=== PATIENT | male | born 1950 | race African-American/Black ===

== ENCOUNTER 2016-04-05 01:41 | Inpatient (IN) | payer OTHER ==
[~2016-04-05] VITALS: Ht 177.8 cm; Wt 99.8 kg
[2016-04-05] MEDS ORDERED: MS CONTIN30 M1 PO (15:17)
[2016-04-05] MEDS ORDERED: COLACE100 M1 PO (15:17)
[2016-04-05] MEDS ORDERED: ASPIRIN EC325 M2 PO (15:17)
[2016-04-05] MEDS ORDERED: MIRALAX17 G1 PO (15:17)
[2016-04-05] MEDS ORDERED: PRILOSEC OTC20 M1 PO (15:17)
[2016-04-05] MEDS ORDERED: DILAUDID4 M1 PO (15:17)
--- NOTE | 2016-04-05 15:22 | Patient Discharge Instructions ---
Discharge Instructions General Discharge Information You were seen/treated for: Left knee pain You had these procedures: Left total knee replacement Watch for these problems: Increasing pain, redness, warmth, swelling. Drainage of any type from incision. Inability to bear weight on left leg. Fever greater than 101.5. Do not soak the wound: Yes No bath, but you may shower: Yes Other wound care: Keep wound clean and dry Special Instructions: Incision: Dry dressing. May shower. No baths. No ointments of any kind. Ice as needed. Bowel regimen: Colace and or MiraLAX Weight-bearing as tolerated Follow-up with Dr. Maria in 6 weeks. Call office for fevers greater than 101.5, excessive drainage or inability to bear weight on operative extremity. Visiting nurse will change dressing. Diet Continue normal diet: Yes Recommended Diet: Regular Additional DIET Information: Advance as tolerated Activity Full Activity/No Limits: No Activity Self Limited: Yes Pounds, do NOT lift more than: 10 Additional ACTIVITY Info: Weight-bear as tolerated on left leg Acute Coronary Syndrome Inclusion Criteria At DC or during hospital stay patient has or had the following: ACS DIAGNOSIS No Discharge Core Measures Meds if any: Prescribed or Continued at Discharge Meds if any: NOT Prescribed or Continued at Discharge Congestive Heart Failure Inclusion Criteria At DC or during hospital stay patient has or had the following: CHF DIAGNOSIS No Discharge Core Measures Meds if any: Prescribed or Continued at Discharge Meds if any: NOT Prescribed or Continued at Discharge Cerebrovascular accident Inclusion Criteria At DC or during hospital stay patient has or had the following: CVA/TIA Diagnosis No Discharge Core Measures Meds if any: Prescribed or Continued at Discharge Meds if any: NOT Prescribed or Continued at Discharge Venous thromboembolism Inclusion Criteria VTE Diagnosis No VTE Type NONE VTE Confirmed by (Test) NONE Discharge Core Measures - Per Current guidelines, there needs to be overlap - treatment for the first 5 days of Warfarin therapy. - If discharged on Warfarin prior to 5 days of - overlap therapy, the patient will need to be - assessed for post discharge needs including - *Post discharge parental anticoagulation - *Warfarin and/or parental anticoagulation education - *Follow up date to check INR post discharge At least 5 days overlap therapy as Inpatient No Meds if any: Prescribed or Continued at Discharge Note: Overlap Therapy is Warfarin and Anticoagulant Meds if any: NOT Prescribed or Continued at Discharge
--- NOTE | 2016-04-05 15:26 | Admission Core Measures ---
Admission Meds I reviewed the following Meds: Current Medications Sig/Emily Start time Last Medication Dose Stop Time Status Admin Acetaminophen 975 MG ONCE 04/05 0000 NR (Tylenol) 04/05 2358 Cefazolin Sodium 2 GM ONCE 04/05 0000 NR (Kefzol) 04/05 2358 Oxycodone HCl 10 MG ONCE 04/05 0000 NR (Roxicodone) 04/05 2358 Ropivacaine 500 ML ONCE ONE 04/05 1100 AC (NAROPIN) 04/07 0439 ON-Q Ball 1 BAG Acute Coronary Syndrome Inclusion Criteria ACS Diagnosis No Inpatient Core Measures LDL Reminder: If No, please order W/I first 24hr of stay Congestive Heart Failure Inclusion Criteria CHF Diagnosis No Cerebrovascular accident Inclusion Criteria CVA/TIA Diagnosis No Inpatient Core Measures Bedside Swallow Eval Reminder: If BSE failed, place ST order Antithrombotic Reminder: Order Antithrombotic Medication by end of day 2 Antithrombotic Reminder: Document Reason Antithrombotic Not ordered by end of day 2 AFIB/Flutter Reminder: If Present, add to problem list AFIB/Flutter Reminder: Order Anticoag Medication for pts with AFIB/Flutter Atherosclerosis Reminder: If Present, add to problem list LDL Reminder: If No, please order W/I first 24hr of stay PT Order Reminder: If No, please order Venous thromboembolism Inpatient Core Measures VTE Risk Factors: Age > 40, Surgery VTE Prophylaxis Ordered Inpt Mech & Pharm No Mech VTE prophylaxis d/t No contraindications No VTE Pharm Prophylaxis d/t No contraindications Inclusion Criteria - Per Current guidelines, there needs to be overlap - treatment for the first 5 days of Warfarin therapy. - Parenteral Anticoagulation (IV or SC) needs to be - given along with Warfarin therapy. VTE Diagnosis No VTE Type NONE VTE Confirmed by (Test) NONE Problem List As ranked by this Provider includes Assessment & Plan 1. Unilateral primary osteoarthritis, left knee HOME MEDS Home Med List Aspirin (Ecotrin*) 325 MG TABLET.DR 1 TAB PO BID ANTICOAGULATION Docusate Sodium (Colace) 100 MG CAPSULE 1 CAP PO BID CONSTIPATION Hydromorphone HCl (Dilaudid) 4 MG TABLET 1-2 TAB PO Q4-6 PRN PAIN Morphine Sulfate (Ms Contin) 30 MG TABLET.ER 1 TAB PO BID PAIN Omeprazole Magnesium (Prilosec Otc) 20 MG TABLET.DR 1 TAB PO DAILY GI PROTECTION Polyethylene Glycol 3350 (Miralax) 17 GRAM POWD.PACK 1 PAC PO DAILY CONSTIPATION
--- NOTE | 2016-04-05 15:28 | Surgical Discharge Summary ---
Visit Information Visit Dates Admission Date: 04/05/16 Discharge Date: 04/08/16 History of Present Illness Chief Complaint: Left knee pain Surgical History Pertinent Surgical History: non-contributory Review of Systems: See H&P Hospital Course Course Attending Physician: LEANDRA ALVAREZ MD Primary Care Physician: CRYSTAL CHIU MD Hospital Course: Patient was admitted to the hospital on 04/05/2016 for an elective left total knee replacement. He tolerated the procedure well. He was transferred to a general surgical floor. His diet was advanced and tolerated. On post operative day 2, he was found to be hypertensive and tachycardic, asymptomatic for both. He was evaluted by the medicine service and a low dose of norvasc was started to which he responded well. A CTA of his chest was obtained to rule out pulmonary embolism. The scan did not show evidene of PE in lower lobes. He also had a venous doppler study on POD#3 to rule out dvts, which was negative. His pain has been well controlled. He was evaluated and treated by physical therapy. He was deemed appropriate for discharge. Allergies: Coded Allergies: No Known Allergies (03/30/16) Disposition Summary Disposition Principal Diagnosis: Left knee unilateral primary osteoarthritis Additional Diagnosis: None Discharge Disposition: home health services Discharge Instructions General Discharge Information Code Status: Full Code Patient's Diet: Regular, advance as tolerated Patient's Activity: Weight-bear as tolerated left leg Follow-Up Instructions/Appts: Incision: Dry dressing. May shower. No baths. No ointments of any kind. Ice as needed. Bowel regimen: Colace and or MiraLAX Weight-bearing as tolerated Follow-up with Dr. Alvarez in 6 weeks. Call office for fevers greater than 101.5, excessive drainage or inability to bear weight on operative extremity. Visiting nurse will change dressing. Medications at Discharge Discharge Medications: Start taking the following new medications: Aspirin (Ecotrin*) 325 MG TABLET.DR 1 Tablet ORAL TWICE DAILY Qty = 60 No Refills Omeprazole Magnesium (Prilosec Otc) 20 MG TABLET.DR 1 Tablet ORAL DAILY Qty = 30 No Refills Docusate Sodium (Colace) 100 MG CAPSULE 1 Capsule ORAL TWICE DAILY Qty = 14 No Refills Instructions: DISCONTINUE USE IF YOU DEVELOP LOOSE STOOL OR DIARRHEA Polyethylene Glycol 3350 (Miralax) 17 GRAM POWD.PACK 1 Packet ORAL DAILY Qty = 7 No Refills Instructions: dissolve in water, DISCONTINUE USE IF YOU DEVELOP LOOSE STOOL OR DIARRHEA Hydromorphone HCl (Dilaudid) 2 MG TABLET 1-2 Tablet ORAL EVERY 4-6 HOURS as needed for PAIN Qty = 36 No Refills Morphine Sulfate (Ms Contin) 15 MG TABLET.ER 1 Tablet ORAL THREE TIMES DAILY Qty = 9 No Refills Amlodipine Besylate (Norvasc) 5 MG TABLET 1 Tablet ORAL DAILY Qty = 30 No Refills
--- NOTE | 2016-04-05 16:09 | Operative Report ---
Operative/Inv Procedure Report Surgery Date: 04/05/16 Name of Procedure: Left total knee replacement Pre-Operative Diagnosis: Primary left knee DJD Post-Operative Diagnosis: Same Estimated Blood Loss: 50ml to 100ml Surgeon/Director Of Food And Nutrition: ANTONIO KING,LEANDRA Daly Anesthesia: block Operative/Procedure Note Note: Description of Procedure: The patient was taken to the operating room and positively identified. After induction of spinal anesthesia and administration of appropriate pre-operative antibiotics, the patient was positioned supine on the operating room table and all bony prominences were well padded. A well-padded pneumatic tourniquet was placed on the left upper thigh. After performing a surgical timeout, the left lower extremity was prepped and draped in the usual sterile fashion. After exsanguination with Esmarch the tourniquet was inflated to 250mm of mercury. A standard medial parapatellar approach was made to the knee. This was carried down through skin and subcutaneous tissue to the level of the fascia. Meticulous hemostasis was maintained with Bovie electrocautery. The extensor mechanism and patellar retinaculum were opened sharply and the patella was everted. The infrapatellar fat was resected in order to improve exposure. Osteophytes were trimmed from the patella and femoral condyles and the patella was re-everted and tucked laterally. A medial release was performed and the cruciate ligaments were resected. The tibia was then subluxed anteriorly. Utilizing the appropriate extra-medullary guide, the proximal tibia was trimmed perpendicular to the long axis of the tibial shaft. Attention was then turned to the femur. After opening the medullary canal, the distal femoral cut was made in 6 degrees of valgus utilizing the appropriate intra-medullary guide. The extension gap was checked and found to be appropriate. The femur was then sized and the remainder of the femoral cuts were made with a size 5 4-in-1 femoral cutting guide. The flexion gap was checked and found to be symmetric and appropriate. The knee was then trialed with a size 5 femoral component, a size 4 tibial component and a size 9 mm polyethylene insert. The patella was not resurfaced due to its excellent preoperative condition. This yielded excellent range of motion, stability and patellar tracking. All trial components were removed and the knee was copiously irrigated with sterile saline. All components were cemented into place with Warren Simplex cement. All the components were of the Amanda Triathlon knee system of the above stated sizes. The knee was again irrigated after cementation. The extensor mechanism and patellar retinaculum were repaired using interrupted #1 vicryl suture. The skin was re-approximated with 2-0 vicryl and closed with zheng. A sterile dressing was applied, the tourniquet was deflated, the patient was awakened and taken to the recovery room in satisfactory condition.
[2016-04-05 17:45] VITALS: BP 170/90
--- NOTE | 2016-04-05 17:57 | PN- Student ---
Subjective Subjective: Patient denies any complaints except pain of left knee worse with movement. Patient states he has already been up and ambulating which increased the pain but tolerable. Patient states the pain is a 5/10 when he is resting with the On- Q pump. Patient denies any chest pain, shortness of breath, weakness, fever, nausea, vomiting, or flatus. Objective Objective: Vitals: BP:170/90 Pulse: 93 Resp:18 Temp: 97.4F SpO2: 94% RA Physical Exam: General: Well appearing, in no acute distress. Alert and oriented to person place and time. Skin: [place], warm and dry. Head: Normocephalic, atraumatic. Eyes: PERRL, EOMI Cardiac: Regular rate and rhythm, normal S1 and S2. No murmurs, rubs or gallops. Pulmonary: Clear to auscultation bilaterally. No wheezes, rhonchi, or rales. Abdomen: Non-distended, non-tender to palpation. Normoactive bowel sounds. Extremities: 2+ dorsalis pedis pulses, with bliateral flexion and extension of ankle joints. Incsion site covered with no obvious drainage. Assessment/Plan Assessment: Pt is a 65 year old male with a history of unilateral osteoarthritis of the left knee s/p total knee replacement POD#0 without complications. Plan: -Continue On Q Ball pain management prn -Continue ALP's while not ambulating -Initiate enoxaparin 40 mg for DVT prophylaxis -Regular diet as tolerated -Physical therapy as prescribed Will discuss above with PA surgical team Constantine MCDONNELL-S2
--- NOTE | 2016-04-05 21:10 | NUR ---
LATE ENTRY: PATIENT ARRIVED TO FLOOR AT 1735 VIA STRETCHER ACCOMPANIED BY DISTRIBUTION; A/OX3; RA; (SEE VS IN INTERVENTION); PATIENT WORKED WITH PT IN PACU AND GOT OOB W/ RW; IVF RUNNING PER ORDER; PATIENT WEARING HIS GLASSES; URINAL GIVEN TO MEASURE OUTPUT S/P SX; ON-Q IN PLACE- LT ADDUCTOR AT 12 ML/HR; ICE TO LT KNEE; PATIENT STATES PAIN 5/10 TO LT KNEE. PATIENT ORIENTED TO ROOM, CALL GRIFFIN IN REACH;
[2016-04-05 23:07] VITALS: BP 132/82
[2016-04-06 07:49] VITALS: BP 162/88
[2016-04-06 08:04] LABS: ABSOLUTE BASOPHIL COUNT 0 /CUMM (0.0-0.2); ABSOLUTE EOSINOPHIL COUNT 0 /CUMM (0.0-0.7); ABSOLUTE GRANULOCYTE CT 10.5 /CUMM (1.4-6.5); ABSOLUTE LYMPH COUNT 0.9 /CUMM (1.2-3.4); ABSOLUTE MONOCYTE COUNT 1.2 /CUMM (0.10-0.60); BASOPHIL % 0.3 % (0.0-2.0); EOSINOPHIL % 0 % (0-5); GRANULOCYTE % 83.2 % (42.2-75.2); HEMATOCRIT 35.3 % (42-52); MEAN CORPUSCULAR HGB 26.5 PG (27.0-31.0); MEAN CORPUSCULAR HGB CONC 31.9 G/DL (33.0-37.0); MEAN PLATELET VOLUME 9.3 FL (7.4-10.4); PLATELET COUNT 217 /CUMM (130-400); RBC DISTRIBUTION WIDTH 15.1 % (11.5-14.5); RED BLOOD CELL CT 4.25 /CUMM (4.70-6.10)
--- NOTE | 2016-04-06 08:40 | PN- Orthopedic ---
Subjective Subjective: Pt has been complaining on entire left leg pain that has been present since surgery He reports he did not receive pain meds over night till one dose of IV morphine this morning with minimal effect. Objective Vital Signs and I&Os Vital Signs Date Time Temp Pulse Resp B/P Pulse O2 O2 Flow FiO2 Ox Delivery Rate 04/06 0749 97.7 85 18 162/88 97 Room Air 04/05 2307 98.5 90 18 132/82 93 04/05 1745 97.4 73 16 170/90 94 Room Air Intake & Output 04/06 1600 04/06 0800 04/06 0000 04/05 1600 04/05 0800 04/05 0000 Intake Total 600 1150 Output Total 1500 1875 Balance -900 -725 Intake, IV 600 300 Intake, Oral 850 Output, Urine 1500 1875 Patient 220 lb Weight Pt. looks uncomfortable. Alert, oriented Lungs are clear bilat. Cor regular Abdomen benign LLE with Joselito bandage on, intact with adequate pressure. On Q pump in place.Foot perfused.Good capillary refill distally Assessment/Plan Assessment/Plan s/p LTKR POD#1 Pain control is a major issue, however pt. has not been adequately medicated with narcotics. Will give rescue Toradol 1 time dose and morphine 2 mg IV now. Will change/ increase oral narcotics Dilaudid to 4 to 8 mg PO q 4 hrs prn and add long acting MS contin 30 mg bid Will reasses pain control later today. Anticipate removal of On Q pump tomorow. PT eval./ mobilization Elevated BP likely related to pain.Will monitor Tolerating solid diet, will d/c IVF Will discuss with surgeon Core Measures/Miscellaneous Venous Thromboembolism VTE Risk Factors: Age > 40, Surgery VTE Contraindications: No Contraindications VTE Prophylaxis Ordered Inpt: Mech & Pharm VTE Diagnosis: No VTE Type: NONE VTE Confirmed by (Test): NONE Beta Nilam Is Beta Nilam a Home Med? No Antibiotics Is Patient on Antibiotics? No
[2016-04-06 09:51] LABS: WHITE BLOOD CELL COUNT 12.7 /CUMM (4.8-10.8)
[2016-04-06 10:00] VITALS: BP 158/84
[2016-04-06 14:00] VITALS: BP 120/92
[2016-04-06 14:34] VITALS: BP 120/90
[2016-04-06 16:36] VITALS: BP 172/80
[2016-04-06 22:48] VITALS: BP 128/72
--- NOTE | 2016-04-07 07:15 | PN- Orthopedic ---
Subjective Subjective: Patient reporting no acute overnight events. States that he is presently having some pain to the lateral aspect of his surgical knee but he feels that the pain is discipating. Denies chest pain, shortness of breath, and difficulty breathing. Denies nausea and vomiting. Has yet to move his bowels. Is voiding without difficulty. Objective Vital Signs and I&Os Vital Signs Date Time Temp Pulse Resp B/P Pulse O2 O2 Flow FiO2 Ox Delivery Rate 04/07 0734 98.9 105 20 158/88 95 Room Air 04/06 2248 100.3 90 20 128/72 94 03/ 1636 97.9 99 20 172/80 98 03/ 1434 97.8 82 18 120/90 94 Room Air / 1400 97.8 82 18 120/92 94 Room Air 04/06 1000 97.0 82 18 158/84 96 Room Air Intake & Output 04/07 1600 04/07 0800 / 0000 / 1600 04/06 0800 / 0000 Intake Total 054 688 3625 600 1150 Output Total 950 1800 1500 1875 Balance -710 240 -505 -900 -725 Intake, IV 575 600 300 Intake, Oral 240 240 720 850 Number 0 Bowel Movements Output, Urine 950 1800 1500 1875 Patient 220 lb Weight Physical Exam: General: Alert and oriented x3, no acute distress Cardiac: RRR, s1s2 Pulmonary: CTA bilaterally Abdomen: Non-tender, non-distended Extremities: Moves all extremities, distal sensation intact. DP pulses palpable bilaterally. Bilateral calves non-tender Surgical site: Left knee, swelling noted, more pronounced laterally. Skin edges well approximaed, zheng in place, no drainage. Assessment/Plan Assessment/Plan This is a 65 year old male, POD 2, s/p L tkr -DSG change today -Add senna S to bowel regimen, consider dulcolax -OOB with PT -Continue current pain regimen -Continue ASA bid for dvt ppx -Plan for dc to home tomorrow Core Measures/Miscellaneous Venous Thromboembolism VTE Risk Factors: Age > 40, Surgery VTE Contraindications: No Contraindications VTE Diagnosis: No VTE Type: NONE VTE Confirmed by (Test): NONE Beta Nilam Is Beta Nilam a Home Med? No Antibiotics Is Patient on Antibiotics? No
[2016-04-07 07:34] VITALS: BP 158/88
--- NOTE | 2016-04-07 13:47 | NUR ---
Physical Therapy: Patients chart reviewed and attempted to see for second treatment today. Patient refused treatment saying that he walked in the morning. Will re-attempt as appropriate.
[2016-04-07] MEDS ORDERED: DILAUDID2 M1 PO (14:08)
[2016-04-07] MEDS ORDERED: MS CONTIN15 M2 PO (14:08)
[2016-04-07 15:25] VITALS: BP 190/90
--- NOTE | 2016-04-07 15:28 | NUR ---
NURSING NOTE: AT 2:30PM WHEN VITAL SIGNS WERE ROUTINELY BEING CHECKED, THE MST INFORMED THIS RN THAT THE PATIENT'S BP WAS HIGH AT 180/90, HR 113 AND SHOULD BE RE-CHECKED. THIS RN RE-CHECKED THE PATIENT'S BP AND IT WAS 190/90. SURGICAL PA NOTIFIED. EKG TO BE DONE. WILL CONTINUE TO MONITOR.
--- NOTE | 2016-04-07 15:42 | Cons- Medical ---
ANUEL MARIE 04/07/16 1540: General Information and HPI Consulting Request Date of Consult: 04/07/16 Requested By: LEANDRA ALVAREZ MD Reason for Consult: HYPERTENSION, TACHYCARDIA Source of Information: medical records. Exam Limitations: no limitations History of Present Illness: 65-year-old male with no past medical history presented to [facility] for an elective left total knee replacement on 04/05/2016 . Vitals at the time of admission blood pressure 170/90, pulse 73, afebrile saturating 94% on room air with a respiratory rate of 16. Labs pertinent for an H&H of 11.3/35.3, white blood cell count of 12,700 and platelet count 217,000. Serum chemistries reveal a normal sodium of 140, potassium of 4.1, anion gap 11, BUN 12 and creatinine of 0.8. Going through records reveal that he underwent surgery on 02/08/16 andis currenty POD#2. His vitals continue to remain elevated with blood pressure ranging from 120-190 this afternoon. Medicine is being consulted for an elevated blood pressure 190/90 and tachycardia with a pulse rate of 113. Of note patient 's MAXIMUM TEMPERATURE has been 100.3 within the past 24 hours. He denies any chest pain, shortness of breath, abdominal pain, nausea, vomiting, but does admit to palpitations that happen intermittently with anxiety as well as a few runs up a flight of stairs. He states that he recently had a physical exam with his primary care physician and his blood pressure has always been within normal limits. Allergies/Medications Allergies: Coded Allergies: No Known Allergies (03/30/16) Home Med List: Aspirin (Ecotrin*) 325 MG TABLET.DR 1 TAB PO BID ANTICOAGULATION Docusate Sodium (Colace) 100 MG CAPSULE 1 CAP PO BID CONSTIPATION DISCONTINUE USE IF YOU DEVELOP LOOSE STOOL OR DIARRHEA Hydromorphone HCl (Dilaudid) 2 MG TABLET 1-2 TAB PO Q4-6 PRN PAIN Morphine Sulfate (Ms Contin) 15 MG TABLET.ER 1 TAB PO TID PAIN Omeprazole Magnesium (Prilosec Otc) 20 MG TABLET.DR 1 TAB PO DAILY GI PROTECTION Polyethylene Glycol 3350 (Miralax) 17 GRAM POWD.PACK 1 PAC PO DAILY CONSTIPATION dissolve in water, DISCONTINUE USE IF YOU DEVELOP LOOSE STOOL OR DIARRHEA Current Medications: Current Medications Sig/Emily Start time Last Medication Dose Route Stop Time Status Admin Acetaminophen 650 MG Q4P PRN 04/05 1800 AC PO Aspirin 325 MG BID 04/05 2200 AC 04/07 PO 0918 Docusate Sodium 100 MG BID 04/05 2200 AC 04/07 PO 0918 Hydromorphone HCl 2 MG Q4P PRN 04/06 1000 AC PO Hydromorphone HCl 4 MG Q4P PRN 04/06 1000 AC 04/06 PO 1944 Ketorolac 15 MG Q6-PRN PRN 04/06 1500 AC Tromethamine IV Morphine Sulfate 15 MG Q8 04/06 2200 AC 04/07 PO 1358 Omeprazole 40 MG DAILY AC 04/06 0700 AC 04/07 PO 0602 Ondansetron HCl 4 MG Q6P PRN 04/05 1800 AC IV Patient Medication 1 ED .STK-MED ONE 04/07 1406 DC Teaching ED 04/07 1407 Polyethylene Glycol 17 GM DAILY 04/06 1000 AC 04/07 PO 0918 Promethazine HCl 12.5 MG Q6P PRN 04/05 1800 AC IV 04/12 1514 Ropivacaine 500 ML ONCE ONE 04/05 1100 DC ON-Q Ball 1 BAG INJ 04/07 0439 Review of Systems Review of Systems Constitutional: Reports: chills. Denies: fever, weakness. EENTM: Denies: visual changes. Cardiovascular: Denies: chest pain, palpitations, peripheral edema. Respiratory: Denies: cough, short of breath, sputum production. GI: Reports: constipation. Denies: abdominal pain, diarrhea, nausea, vomiting. Genitourinary: Reports: no symptoms. Musculoskeletal: Reports: joint pain. Neurological/Psychological: Denies: headache, numbness, tingling, tremors. Past History Medical History Blood Transfusion Hx: No Neurological: NONE EENT: NONE Cardiovascular: NONE Respiratory: bronchitis Gastrointestinal: NONE Hepatic: NONE Renal: NONE Musculoskeletal: NONE Psychiatric: NONE Endocrine: NONE Blood Disorders: NONE Cancer(s): NONE PROSTHETIC TECHNICIAN/Reproductive: NONE Surgical History Surgical History: RT ROTATOR CUFF REPAIR Psychosocial History Where Do You Live? Home Services at Home: None Smoking Status: Never Smoked ETOH Use: denies use Illicit Drug Use: denies illicit drug use Functional Ability ADLs Independent: dressing, eating, toileting, bathing. Ambulation: independent IADLs Independent: shopping, housework, finances, food prep, telephone, transportation , medication admin. Employment History Employment: Retired Exam & Diagnostic Data Last 24 Hrs of Vital Signs/I&O Vital Signs Date Time Temp Pulse Resp B/P Pulse O2 O2 Flow FiO2 Ox Delivery Rate 04/07 1525 190/90 04/07 1458 99.1 113 20 94 Room Air 04/07 0734 98.9 105 20 158/88 95 Room Air 04/06 2248 100.3 90 20 128/72 94 04/06 1636 97.9 99 20 172/80 98 Intake & Output 04/07 1600 04/07 0800 04/07 0000 Intake Total 1000 240 240 Output Total 950 Balance 1000 -710 240 Intake, Oral 1000 240 240 Output, Urine 950 Physical Exam General Appearance: well developed/nourished, no apparent distress, alert, awake Head: atraumatic, normal appearance Eyes: Left: normal appearance, PERRL, EOMI. Neck: normal inspection, supple Respiratory: normal breath sounds, chest non-tender, no respiratory distress, quiet respiration, lungs clear Cardiovascular: regular rate/rhythm, tachycardia Gastrointestinal: normal bowel sounds, soft, non-tender Extremities: normal inspection, normal range of motion, no edema, has brace on left knee Neurologic/Psych: no motor/sensory deficits, awake, alert, oriented x 3 Cranial Nerves: normal hearing, normal speech, PERRL Last 24 Hrs of Labs/Dipesh: None Diagnostic Data EKG Results 102, sinus tachycardia, LVH, poor R wave progression, T wave inversion in pre- cordial lateral leads Assessment/Plan Assessment/Plan In summary this is a 65-year-old male with no past medical history presented to [facility] for an elective left total knee replacement on 04/05/2016, who has been hypertensive to the 170 and 180 systolic as well as tachycardic to 110 's since this am. Assessment and plan # Hypertension Most likely benign essential HTN vs 2/2 anxiety vs pain BP in both arms was 180/90 systolic. Looking at his EKG reveals left ventricular hypertrophy which suggests long- standing hypertension. Will start him on Amlodipine 5mg daily. If still tacycardic would consider B- Nilam Metoprolol 12.5mg BID PO if needed. Would consider getting an echocardiogram to further evaluate for cardiomyopathy Would discontinue NSAIDs and ensure pain is adequetely controlled. Would benefit from a cardiology referral as an outpatinet to further evaluate his palpitations. # Sinus tachycardia - Most liklely 2/2 anxiety and pain vs dehydrationvs PE - Would do a CTA to r/o Pulmonary embolism. Problem List: 1. Hypertension Consult Acknowledgment - Thank you for your consult request. MALU QUIÑONEZ MD 04/07/16 1708: Assessment/Plan Consult Acknowledgment - Thank you for your consult request. Attending MD Review Statement Attending Statement Attending MD Statement: examined this patient, discuss w/resident/PA/EMPLOYEE'S REPRESENTATIVE, agreed w/resident/PA/EMPLOYEE'S REPRESENTATIVE, reviewed EMR data (avail), reviewed images, amended to note Attending Assessment/Plan: The patient is a 55 yo male with h/o GERD admitted for elective left TKR done 04/05/16. Medical consultation was called due to tachycardia and HTN. The patient denies any chest pain, palpitations or dyspnea. He is on aspirin post TKR protocol. Physical Exam: VS: T 99.1-100.3 (max), P 113, R 20, BP 190/90, PO 94-95% RA HEENT: eyes- PERRLA, EOMI mihir- dry mucosa Neck: no JVD/bruits Chest: clear Cor: regular tachycardia, nl S1, S2 w/o murm Abd: BS+, soft, NT Ext: s/p left TKR with some swelling, pulses 2+ Neuro: alert & oriented x 3, non-focal Labs/Tests- as above EKG with sinus tachycardia Impression/Plan: #Tachycardia- sinus on EKG. Most likely multifactorial due to mild volume depletion, pain, and anxiety. Although he is not hypoxemic would need to exclude pulmonary embolism as possible etiology (less likely). Plan: Suggest CTPA to exclude pulmonary embolism. Encourage po intake. Treat pain. #HTN- patient denies h/o HTN, although suspect may have had borderline readings in the past. Plan: Agree with Amlodipine as per resident note. If remains tachycardic consider low dose beta nilam. #GERD- no symptoms. Plan: Continue PPI.
[2016-04-07 19:46] VITALS: BP 146/76
--- NOTE | 2016-04-07 21:04 | CT SCAN REPORT ---
EXAMINATION: CT ANGIOGRAM OF THE CHEST WITH AND WITHOUT CONTRAST (CT PULMONARY ANGIOGRAM FOR PE) CLINICAL INFORMATION: shortness of breath COMPARISON: None TECHNIQUE: Prior to contrast administration, noncontrast localization images were obtained. Subsequently, multidetector volumetric imaging was performed from the thoracic inlet to below the diaphragms following the administration of 75 mL Optiray 350 intravenous contrast. No contrast reaction reported Sagittal, coronal, and MIP oblique sagittal reformatted images were obtained on the CT workstation, uploaded to PACS, and reviewed. Total exam dose-length product 591.62 mGy-cm FINDINGS: QUALITY OF STUDY/CONTRAST BOLUS: Satisfactory. PULMONARY ARTERIES: No central or segmental pulmonary emboli are identified in the mid to lower lungs. Assessment of the vasculature in the upper lobes is significantly limited and essentially nondiagnostic due to suboptimal bolus timing. THORACIC AORTA: No aneurysm or dissection. LUNG: No regions of consolidation bilaterally. There is a 3 mm nodule in the lingula on image 34/67. There is a left major fissural nodule measuring 4 mm on image 36/67. There is a 3 mm subpleural left lower lobe nodule on image 42/67. There is a 3 mm right middle lobe nodule on image 29/67. There is a 3 mm right middle lobe nodule on image 32/67. There is a 3 mm subpleural nodule in the right lower lobe on image 34/67. There is a linear 3 mm nodule in the subpleural right lower lobe on image 36/67. PLEURA: No pleural effusion or pneumothorax. MEDIASTINUM: The visualized thyroid gland is unremarkable. There are subcentimeter mediastinal lymph nodes within the range of normal variation. Cardiac size is within normal limits; no pericardial effusion. No evidence of septal bowing or right heart strain. CHEST WALL/AXILLA: No axillary or internal mammary lymphadenopathy. OSSEOUS STRUCTURES: Degenerative changes are noted in the spine. UPPER ABDOMEN: Unremarkable. No reflux of contrast into the hepatic veins to suggest elevated right heart pressures. IMPRESSION: 1. No pulmonary embolus identified in the mid to basilar lungs bilaterally; assessment of the upper lobe vasculature is mostly nondiagnostic due to suboptimal bolus timing. If clinically warranted, consider assessment with nuclear medicine VQ scan or repeat CT angiogram. 2. Several tiny bilateral lung nodules, nonspecific. In the absence of prior examinations to assess for stability, follow-up chest CT in 6 months is advised. VTE: indeterminate
[2016-04-07] MEDS ORDERED: NORVASC5 M1 PO (21:47)
[2016-04-07 23:02] VITALS: BP 154/74
[2016-04-08 07:51] VITALS: BP 140/72
--- NOTE | 2016-04-08 09:09 | PN- Student ---
CONSTANTINE GODOY 04/08/16 0846: Subjective Subjective: Patient states he went for a scan overnight for a brief episode of shortness of breath, tachycardia and high blood pressure. He complains of pain in his left lateral calf area that radiates up his leg, otherwise states his pain is soreness from surgery. He reports he is taking pain medication that they give him and at the worst after walking his pain is a 5/10. He denies any headache, chest pain, shortness of breath, fevers/chills, nausea, vomiting, bowel movements, numbness or tingling in extremities. He states he would like to have a bowel movement but only is able to pass flatus. Objective Objective: Vitals: BP: 140/72 Pulse:106 Resp:20 Temp: 99.3F SpO2: 95% RA Physical Exam: General: Well-appearing, in no acute distress. Alert and oriented to person, place and time. Skin: Warm and dry. Head: Normocephalic, atraumatic. Cardiac: Tachycardic, normal S1 and S2. No murmurs, rubs or gallops. Pulmonary: Clear to auscultation bilateraly. No wheezes, rhonchi, or rales. Abdomen: Hypoactive bowel sounds. Heart rate audible in all four qudrants. Dull to percussion RUQ, tympanic to percussion LUQ and lower quadrants. Non-distended and non-tender to light and deep palpation. No masses. Extremities: Bilateral 2+ dorsalis pedis pulses. Left extremity swollen with trace edema. Mild erythema on medial aspect of left knee. Incision site intact and dry with zheng in place. No drainage. Covered by gauze. Lateral aspect of proximal calf tender to palpation. Results Results: Laboratory Tests 04/06/16 0617: Anion Gap 11, Estimated GFR > 60, BUN/Creatinine Ratio 15.0, CBC w Diff NO MAN DIFF REQ, RBC 4.25 L, MCV 83.0, MCH 26.5 L, RDW 15.1 H, MPV 9.3, Gran % 83.2 H, Lymphocytes % 7.1 L, Monocytes % 9.4 H, Eosinophils % 0, Basophils % 0.3, Absolute Granulocytes 10.5 H, Absolute Lymphocytes 0.9 L, Absolute Monocytes 1.2 H, Absolute Eosinophils 0, Absolute Basophils 0, PUBS MCHC 31.9 L Assessment/Plan Assessment: Patient is a 65 year old male with a history of osteoarthrits in left knee and GERD who is POD#3 s/p total knee replacement. Patients hospital course complicated by new recognized hypertension and tachycardia. Plan: -Continue pain management as ordered. -Continue full diet. -Continue ALPs and out of bed ambulation. -Continue ASA for DVT prophylaxis. -Continue physical therapy. -Continue amlodipine. -Encourage adequate hydration. -Follow up with pending labs. Will discuss above with PA surgical team. Constantine MCDONNELL-S2 LUCERO STEWART 04/08/16 0936: Assessment/Plan Plan: AGREE WITH ABOVE PA-S NOTE HE REMAINS TACHYCARDIC WITHOUT SYMPTOMS THIS MORNING WILL CHECK VENOUS DOPPLER ULTRASOUND OF BILATERAL LEGS R/O DVT CHECK LABS (CBC, BEP) F/U MEDICAL CONSULT D/C PLANNING TODAY VS TOMORROW WILL D/W
--- NOTE | 2016-04-08 09:55 | NUR ---
NURSING NOTE: STAT LABS DRAWN AND SENT TO LAB. PATIENT LEFT FOOR VIA STRETCHER WITH DISTRIBUTION FOR ULTRASOUND OF LLE. WILL AWAIT RETURN.
--- NOTE | 2016-04-08 10:05 | NUR ---
PT MONICA FOR U/S TO R/O DVT IN LLE. WILL ATTEMPT AT A LATER TIME
--- NOTE | 2016-04-08 11:00 | NUR ---
NURSING NOTE: PATIENT RETURNED TO FLOOR VIA STRETCHER WITH DISTRIBUTION FROM ULTRASOUND. PATIENT A/OX3, DENIES PAIN AT THIS TIME. WILL CONTINUE TO MONITOR
[2016-04-08 13:02] LABS: ABSOLUTE BASOPHIL COUNT 0 /CUMM (0.0-0.2); ABSOLUTE EOSINOPHIL COUNT 0.1 /CUMM (0.0-0.7); ABSOLUTE GRANULOCYTE CT 9.4 /CUMM (1.4-6.5); ABSOLUTE LYMPH COUNT 1.4 /CUMM (1.2-3.4); ABSOLUTE MONOCYTE COUNT 1.5 /CUMM (0.10-0.60); BASOPHIL % 0.1 % (0.0-2.0); EOSINOPHIL % 0.5 % (0-5); HEMATOCRIT 31.6 % (42-52); MEAN CORPUSCULAR HGB 26.2 PG (27.0-31.0); MEAN CORPUSCULAR HGB CONC 31.6 G/DL (33.0-37.0); MEAN CORPUSCULAR VOLUME 82.9 FL (80.0-94.0); MEAN PLATELET VOLUME 9.3 FL (7.4-10.4); PLATELET COUNT 185 /CUMM (130-400); RBC DISTRIBUTION WIDTH 15.1 % (11.5-14.5); RED BLOOD CELL CT 3.81 /CUMM (4.70-6.10); WHITE BLOOD CELL COUNT 12.4 /CUMM (4.8-10.8)
--- NOTE | 2016-04-08 13:12 | ULTRASOUND REPORT ---
EXAMINATION: US TRIPLEX LOWER EXTREMITY, BILATERAL CLINICAL INFORMATION: Right leg swelling. Assess for DVT. COMPARISON: None. TECHNIQUE: Color-flow triplex imaging with spectral analysis and compression Doppler were performed on the bilateral lower extremities. FINDINGS: Respiratory variation, normal compression and augmented flow are noted throughout the bilateral lower extremities. The visualized common femoral vein, superficial femoral vein, profunda femoral vein, popliteal vein and midcalf peroneal and posterior tibial venous segments show no evidence of deep venous thrombosis. There are no focal fluid collections. There are mildly prominent left inguinal lymph nodes measuring up to 2.1 cm. IMPRESSION: 1. Triplex ultrasound scan without evidence of deep venous thrombosis involving either of the bilateral lower extremities. 2. There are no focal fluid collections. 3. There are mildly prominent left inguinal lymph nodes, which are nonspecific.
[2016-04-08 13:35] VITALS: BP 134/72
[2016-04-08] MEDS ORDERED: AMLODIPINE BESYL5 M1 PO (13:46)
--- NOTE | 2016-04-08 14:28 | NUR ---
NURSING NOTE: PATIENT A/OX3, DENIES PAIN AT THIS TIME. ALL BELONGINGS LEFT WITH PATIENT. PRESCRIPTIONS TO BE PICKED UP ON PATIENT'S WAY OUT. PATIENT LEFT FLOOR VIA WC WITH DISTRIBUTION TO MEET SPOUSE AT PHARMACY.
--- NOTE | 2016-04-08 15:06 | PN- Medicine Consult ---
Assessment/Plan Assessment/Plan Assessment: 65-year-old male with no past medical history presented to [facility] for an elective left total knee replacement on 04/05/2016, who has been hypertensive to the 170 and 180 systolic as well as tachycardic to 110's since this am. His blood pressure appears to be well controlled after amlodipine. There was a concern of tachycardia in morning. CAT scan done to rule out PE was inconclusive. Ultrasound of the legs done did not show evidence of DVT. 1. Hypertension -Blood pressure well controlled today-continue amlodipine 5 mg and discharge him with the same. 2. Sinus tachycardia patient appears normovolemic. H&H repeated did not show significant anemia. His heart rate was around 90s prior to discharge. - We will agree to discharge and. - He should follow-up with his primary care physician for further cardiac workup in future. Plan: As mentioned above Subjective Subjective: Patient appears to be stable postop. Denies complaints. No overnight events reported. Review of Systems Constitutional: Reports: see HPI. Objective Last 24 Hrs of Vital Signs/I&O Vital Signs Date Time Temp Pulse Resp B/P Pulse O2 O2 Flow FiO2 Ox Delivery Rate 04/08 1335 98.6 98 18 134/72 99 Room Air 04/08 1129 148/88 / 0751 99.3 106 20 140/72 95 Room Air 04/07 2302 99.9 108 20 154/74 94 Room Air 04/07 1946 110 146/76 04/07 1710 180/90 04/07 1525 190/90 Intake & Output 04/08 1600 04/08 0800 04/08 0000 Intake Total 1000 400 600 Output Total 420 988 6385 Balance 400 -250 -400 Intake, Oral 1000 400 600 Output, Urine 517 289 5551 Physical Exam General Appearance: no apparent distress, alert, awake Cardiovascular: regular rate/rhythm Respiratory: normal breath sounds, no respiratory distress Abdomen: normal bowel sounds, soft, non-tender Extremities: normal inspection Current Medications: Current Medications Sig/Emily Start time Last Medication Dose Route Stop Time Status Admin Acetaminophen 650 MG Q4P PRN 04/05 1800 DCD PO Amlodipine Besylate 5 MG DAILY 04/07 1645 DCD / PO 1129 Aspirin 325 MG BID 04/05 2200 DCD 04/08 PO 1127 Docusate Sodium 100 MG BID 04/05 2200 DCD 04/08 PO 1127 Hydromorphone HCl 2 MG Q4P PRN 04/06 1000 DCD PO Hydromorphone HCl 4 MG Q4P PRN 04/06 1000 DCD 04/06 PO 1944 Ketorolac 15 MG Q6-PRN PRN 04/06 1500 DC Tromethamine IV Metoprolol Tartrate 25 MG BID 04/08 1330 DC PO Morphine Sulfate 15 MG Q8 04/06 2200 DCD 04/08 PO 1315 Omeprazole 40 MG DAILY AC 04/06 0700 DCD 04/08 PO 0551 Ondansetron HCl 4 MG Q6P PRN 04/05 1800 DCD IV Polyethylene Glycol 17 GM DAILY 04/06 1000 DCD 04/08 PO 1129 Promethazine HCl 12.5 MG Q6P PRN 04/05 1800 DCD IV 04/12 1514 Sodium Chloride 2 SPRAY BID PRN 04/07 2030 DCD JAMI Results Last 24 Hrs Lab/Dipesh Results: Laboratory Tests 04/08/16 1302: CBC w Diff Cancelled, WBC Cancelled, RBC Cancelled, Hgb Cancelled, Hct Cancelled , MCV Cancelled, MCH Cancelled, RDW Cancelled, Plt Count Cancelled, MPV Cancelled, PUBS MCHC Cancelled 04/08/16 0956: Anion Gap 10, Estimated GFR > 60, BUN/Creatinine Ratio 12.2, Magnesium 2.4 H, CBC w Diff NO MAN DIFF REQ, RBC 3.81 L, MCV 82.9, MCH 26.2 L, RDW 15.1 H, MPV 9.3, Gran % 76.0 H, Lymphocytes % 11.1 L, Monocytes % 12.3 H, Eosinophils % 0.5, Basophils % 0.1, Absolute Granulocytes 9.4 H, Absolute Lymphocytes 1.4, Absolute Monocytes 1.5 H, Absolute Eosinophils 0.1, Absolute Basophils 0, PUBS MCHC 31.6 L
== END 2016-04-08 14:25 | disposition home health service (06) | DRG 470 ==
LOC: ENRESERVTM → ENRESERVDT → ENPENDDIS 01:41 → SDA 01:41 → 2NB 17:27
PROVIDERS: Nurse Practitioner; Physician Assistant; ADMIT Orthopaedic Surgery
PROC: 0SRD0J9 Replacement of Left Knee Joint with Synthetic Substitute, Cemented, Open Approach (ICD-10-PCS; principal; 2016-04-05)
DX: M17.12 Unilateral primary osteoarthritis, left knee (principal); L71.9 Rosacea, unspecified
CPT/HCPCS: 2NBSP; 82436; 88305; 93005; 93010; 93970; 97110-GO; 97116-GO; 97161-GP; 97530-GO; C1713; J0690; J1100; J1885; J2405; J2550; J2795; J7042